=== PATIENT | male | born 2000 | race Caucasian/White ===

== ENCOUNTER 2021-04-15 13:10 | Emergency (ER) | payer OTHER ==
[~2021-04-15] VITALS: Ht 180.3 cm; Wt 97.7 kg
[2021-04-15 14:18] VITALS: BP 123/67
== END 2021-04-15 14:53 | disposition home or self-care (01) ==
LOC: EMS 13:10
DX: Z02.79 Encounter for issue of other medical certificate (principal)
CPT/HCPCS: 99281; Z7502